=== PATIENT | female | born 1995 | race American Indian/Alaskan Native ===

== ENCOUNTER 2018-07-03 12:42 | Emergency (ER) | payer MEDICAID ==
[2018-07-03 14:08] LABS: HCG Qualitative,Urine Positive (Negative)
--- NOTE | 2018-07-03 16:15 | Emergency Department Report ---
Blank Doc - Documentation Documentation: Patient is a 22-year-old -[place] female who is presenting with some vaginal bleeding and lower abdominal crampiness starting yesterday. Persistent bleeding is as heavy as a normal period. Patient states she did take a positive test at home but is not sure how far along she may be. Patient's symptoms that she is very early in . Patient will have a beta quant and ultrasound performed and the patient will be reassessed.
--- NOTE | 2018-07-03 16:31 | Emergency Department Report ---
ED Female HPI - General Chief complaint: Vaginal Bleeding Stated complaint: /BLEEDING/DIZZY Time Seen by Provider: 07/03/18 16:10 Source: patient Mode of arrival: Ambulatory Limitations: No Limitations - History of Present Illness Initial comments: [id number] -[place] female who presents with heavy vaginal bleeding and . 2 days. Patient took a home is last week and it was positive. She is now complaining of heavy bleeding without passage of clots as far yesterday. Patient states she is wearing a pain Her and haven't changed every 2-3 hours. There is epigastric cramping. Last menstrual cycle 05/24/2018, A1. Patient is also complaining of some lightheadedness. She is currently not under [facility] care. Patient denies fever , low back pain, frequency, urgency, dysuria. MD Complaint: vaginal bleeding Onset/Timin -: days(s) Location: other (epigastric pain) Radiation: non-radiating Severity: mild Severity scale (0 -10): 2 Quality: cramping Consistency: intermittent Worsens with: none Are you Now?: Yes Last Menstrual Period: 05/24/18 EDC: 02/28/19 Associated Symptoms: vaginal bleeding, abdominal pain - Related Data Sexually active: Yes : 4 Para: 2 A: 1 Home Medications Medication Instructions Recorded Confirmed Last Taken Ferrous Sulfate [Feosol] 325 mg PO QDAY 07/28/16 07/28/16 Unknown valACYclovir [Valtrex] 500 mg PO BID 07/28/16 07/28/16 Unknown Previous Rx's Medication Instructions Recorded Last Taken Type Ferrous Sulfate [Feosol 325 MG tab] 325 mg PO BID #60 tablet 07/28/16 Unknown Rx HYDROcodone/APAP 5-325 [[place] 1 each PO Q6HR PRN #30 tablet 07/28/16 Unknown Rx 5/325] Ibuprofen [Motrin] 800 mg PO Q8HR PRN #30 tablet 07/28/16 Unknown Rx Vit Calc,Iron,Folic 1 each PO DAILY #30 tablet 07/28/16 Unknown Rx [ Vitamins] 21/Iron Fu/Folic Acid 1 each PO DAILY #30 tablet 07/03/18 Unknown Rx [ Complete Caplet] Allergies Allergy/AdvReac Type Severity Reaction Status Date / Time No Known Allergies Allergy Verified 03/18/15 00:35 ED Review of Systems ROS: Stated complaint: /BLEEDING/DIZZY Other details as noted in HPI Constitutional: denies: chills, fever Respiratory: denies: cough, shortness of breath, wheezing Cardiovascular: denies: chest pain, palpitations Gastrointestinal: abdominal pain (epigastric pain). denies: nausea, diarrhea Genitourinary: other (vaginal bleeding). denies: urgency, dysuria, discharge Musculoskeletal: denies: back pain, joint swelling, arthralgia Skin: denies: rash, lesions Neurological: denies: headache, weakness, paresthesias Psychiatric: denies: anxiety, depression ED Past Medical Hx - Past Medical History Hx Hypertension: Yes (PIH) Hx Congestive Heart Failure: No Hx Diabetes: No Hx Deep Vein Thrombosis: No Hx Renal Disease: No Hx Sickle Cell Disease: No Hx Seizures: Yes (eclampsia DURING , 2012, ) Hx Asthma: No Hx COPD: No Hx HIV: No - Surgical History Additional Surgical History: - Social History Smoking Status: Never Smoker - Medications Home Medications: Home Medications Medication Instructions Recorded Confirmed Last Taken Type Ferrous Sulfate [Feosol 325 MG tab] 325 mg PO BID #60 tablet 07/28/16 Unknown Rx Ferrous Sulfate [Feosol] 325 mg PO QDAY 07/28/16 07/28/16 Unknown History HYDROcodone/APAP 5-325 [[place] 1 each PO Q6HR PRN #30 tablet 07/28/16 Unknown Rx 5/325] Ibuprofen [Motrin] 800 mg PO Q8HR PRN #30 tablet 07/28/16 Unknown Rx Vit Calc,Iron,Folic 1 each PO DAILY #30 tablet 07/28/16 Unknown Rx [ Vitamins] valACYclovir [Valtrex] 500 mg PO BID 07/28/16 07/28/16 Unknown History 21/Iron Fu/Folic Acid 1 each PO DAILY #30 tablet 07/03/18 Unknown Rx [ Complete Caplet] ED Physical Exam - General Limitations: No Limitations General appearance: alert, in no apparent distress - Respiratory Respiratory exam: Present: normal lung sounds bilaterally. Absent: respiratory distress - Cardiovascular Cardiovascular Exam: Present: regular rate, normal rhythm. Absent: systolic murmur, diastolic murmur, rubs, gallop - GI/Abdominal GI/Abdominal exam: Present: soft, tenderness (epigastric tenderness), normal bowel sounds. Absent: distended, guarding, rebound, rigid, organomegaly, mass - Back Exam Back exam: Present: normal inspection - Neurological Exam Neurological exam: Present: alert, oriented X3 - Psychiatric Psychiatric exam: Present: normal affect, normal mood - Skin Skin exam: Present: warm, dry, intact, normal color. Absent: rash ED Course Vital Signs 07/03/18 12:48 Temperature 98.0 F Pulse Rate 88 Blood Pressure 143/71 O2 Sat by Pulse 100 Oximetry ED Medical Decision Making - Lab Data Lab Results 07/03/18 07/03/18 07/03/18 Range/Units 13:55 16:27 16:46 HCG, Quant 17417 H (0-4) mIU/mL Urine Color Yellow (Yellow) Urine Turbidity Clear (Clear) Urine pH 5.0 (5.0-7.0) Ur Specific [place] 1.020 (1.003-1.030) Urine Protein <15 mg/dl (Negative) mg/dL Urine Glucose (UA) Neg (Negative) mg/dL Urine Ketones Neg (Negative) mg/dL Urine Blood Sm (Negative) Urine Nitrite Neg (Negative) Urine Bilirubin Neg (Negative) Urine Urobilinogen < 2.0 (<2.0) mg/dL Ur Leukocyte Esterase Neg (Negative) Urine WBC (Auto) 2.0 (0.0-6.0) /HPF Urine RBC (Auto) 1.0 (0.0-6.0) /HPF U Epithel Cells (Auto) 2.0 (0-13.0) /HPF Urine Mucus 2+ /HPF Urine HCG, Qual Positive A (Negative) - Radiology Data Radiology results: report reviewed, image reviewed FINAL REPORT PROCEDURE: Transabdominal obstetrical ultrasound. TECHNIQUE: Real-time transabdominal sonography of the uterus, placenta, amniotic fluid, adnexa, and fetus was performed with image documentation. Measurements were obtained to determine age/size. M-mode Doppler was used to document heartbeat. CPT 28992 HISTORY: with vaginal bleeding. COMPARISON: No studies that are applicable. FINDINGS: The uterus measures 9.8 centimeters x 4.6 centimeters x 5.5 centimeters. The myometrium appears fairly uniform. The endometrial echo complex is poorly defined. There is a small intrauterine gestational sac. This would be better evaluated with transvaginal scanning. Neither ovary is identified. IMPRESSION: Early intrauterine gestational sac. - Medical Decision Making Patient was examined by me and Dr. Valdez in the emergency department. Vitals are normal and patient is in no acute distress. Obtained labs and transvaginal/ OB ultrasound. Urine test is positive, hCG 79718, and urinalysis unremarkable. Start complete. Patient instructed to follow up with OB /[facility] and have repeat hCG quant in 48 hours. Patient discharged home in stable condition. Critical care attestation.: If time is entered above; I have spent that time in minutes in the direct care of this critically ill patient, excluding procedure time. ED Disposition Clinical Impression: Vaginal bleeding affecting early , Threatened miscarriage in early Disposition: - TO HOME OR SELFCARE Is pt being admited?: No Does the pt Need Aspirin: No Condition: Stable Instructions: Threatened Miscarriage (ED) Additional Instructions: Have repeat hCG quant labs in 48 hours with [facility] or ER. Follow up with [facility] in 24-48 hours. Return to ER if increased vaginal bleeding, abdominal pain, and low back pain. Prescriptions: 21/Iron Fu/Folic Acid [ Complete Caplet] 1 each PO DAILY #30 tablet Referrals: REYMUNDO FLYNN MD [Primary Care Provider] - 3-5 Days CHANDRIKA ABBOTT MD [Staff Physician] - 3-5 Days [facility] [Provider Group] - 3-5 Days Forms: Work/School Release Form(ED) Time of Disposition: 19:02 Print Language: CITIZEN OF [place]
[2018-07-03 16:52] LABS: Bilirubin,Urine NEG (Negative); Blood,Urine SM (Negative); Color,Urine Yellow (Yellow); Mucus,Urine 2+ /HPF; Protein,Urine <15 mg/dL mg/dL (Negative); Urobilinogen,Urine < 2.0 mg/dL (<2.0)
--- NOTE | 2018-07-03 18:43 | Ultrasound Report ---
FINAL REPORT PROCEDURE: Transabdominal obstetrical ultrasound. TECHNIQUE: Real-time transabdominal sonography of the uterus, placenta, amniotic fluid, adnexa, and fetus was performed with image documentation. Measurements were obtained to determine age/size. M-mode Doppler was used to document heartbeat. CPT 17999 HISTORY: with vaginal bleeding. COMPARISON: No studies that are applicable. FINDINGS: The uterus measures 9.8 centimeters x 4.6 centimeters x 5.5 centimeters. The myometrium appears fairly uniform. The endometrial echo complex is poorly defined. There is a small intrauterine gestational sac. This would be better evaluated with transvaginal scanning. Neither ovary is identified. IMPRESSION: Early intrauterine gestational sac.
--- NOTE | 2018-07-03 18:50 | Ultrasound Report ---
FINAL REPORT PROCEDURE: Transvaginal obstetrical ultrasound. TECHNIQUE: Real-time transvaginal sonography of the uterus, placenta, amniotic fluid, adnexa, and fetus was performed with image documentation. Measurements were obtained to determine age/size. M-mode Doppler was used to document heartbeat. CPT 69582 HISTORY: with vaginal bleeding. COMPARISON: None that are applicable. FINDINGS: The uterus measures 10.3 centimeters x 4.3 centimeters x 6.3 centimeters. The myometrium appears homogeneous. There are no focal uterine masses. The endometrial echo complex is unremarkable. There is an intrauterine gestational sac in the fundal portion of the endometrium. A yolk sac and pole are visible. The mean gestational sac diameter is 20.0 millimeters. This indicates a menstrual age of 6 weeks 6 days. The crown-rump length measurement is 4.2 millimeters. This indicates a menstrual age of 6 weeks 1 day. The composite menstrual age by ultrasound is 6 weeks 3 days. The estimated date of confinement is 02/23/2019. A heart rate is detected at 120 beats per minute. Both ovaries appear normal in size. There is a small echogenic focus in the right ovary that does not show acoustical shadowing. This is of doubtful clinical significance. It measures approximately 7 millimeters in diameter. IMPRESSION: Viable intrauterine with a menstrual age of 6 weeks 3 days.
[2018-07-03 19:25] VITALS: BP 108/62
== END 2018-07-03 19:25 | disposition home or self-care (01) ==
LOC: ED 12:42
DX: O20.0 Threatened abortion (principal); I10 Essential (primary) hypertension; Z3A.01 Less than 8 weeks gestation of pregnancy
CPT/HCPCS: 36415; 76801; 76817; 81001; 81025; 84702; 99284